=== PATIENT | female | born 1935 | race Caucasian/White ===

== ENCOUNTER 2021-05-10 00:30 | Day surgery (SDC) | payer MEDICARE, SELFPAY ==
[2021-04-29 14:17] VITALS: BMI 31.4
[2021-05-10 11:46] VITALS: BP 112/82; PULSE 87; RESP 17; TEMP 37; O2SAT 96; BMI 30.3
[2021-05-10] MEDS: LACTATED RINGERS 1,000 ML 150 ML IV CONT (11:52)
--- NOTE | 2021-05-10 12:00 | WPDGICN ---
Assessment and Plan Assessment and plan (1) Positive colorectal cancer screening using Cologuard test: Code(s): R19.5 - Other fecal abnormalities Status: Acute Assessment and Plan: Patient had positive Cologuard test performed in primary care office and presents today for colonoscopy because this test was positive. GI Consult Note Consult date/time: 05/10/21 12:00 HPI: Hiral Hernandez is a 85 year old female Presents for screening colonoscopy. Patient was found to have positive Cologuard test as an outpatient performed by primary care service. Patient reports that her weight appetite bowel movements are normal. She states she did have a previous colonoscopy 20 years ago that was unremarkable. Her family history is noncontributory. Patient reports her weight appetite bowel movements are normal. Past medical history is significant for lung cancer which patient's states was treated and it has no evidence of residual disease. She presents today for colonoscopy because of the Cologuard test. Review of Systems Review of Systems: All systems reviewed & are unremarkable except as noted in HPI and below PMFSH Surgical History Surgical History H/O vaginal hysterectomy Family History Family History Father Depression Hypertension Mother Hypertension Depression Cerebrovascular accident Sibling Breast cancer Hypertension Depression Other Diabetes mellitus Depression Hypertension Grandparent Hypertension Heart disease Lung cancer Malignant neoplasm of prostate Social History Social History Years smoked: 7 Smoking status: Former smoker Tobacco type: cigarettes Alcohol intake: current Drinks per week: 1 Alcohol use details: VARIES Substance use: never Substance use type: does not use Living arrangements: with family Gender identity (if verbalized by the patient): Female Spiritual care concerns: No Agree to blood products: Yes Meds Home Medications and Allergies Home Medications Medication Instructions Recorded Confirmed Type acetaminophen 500 mg tablet 500 mg PO Q6H PRN 02/12/21 05/10/21 History cholecalciferol (vitamin D3) 25 25 mcg PO DAILY 02/12/21 05/10/21 History mcg (1,000 unit) capsule hydrochlorothiazide 25 mg tablet 25 mg PO DAILY 02/12/21 05/10/21 History lisinopril 40 mg tablet 40 mg PO DAILY 02/12/21 05/10/21 History lovastatin 40 mg tablet 40 mg PO DAILY 02/12/21 05/10/21 History sertraline 50 mg tablet 50 mg PO DAILY 02/12/21 05/10/21 History tramadol 50 mg tablet 50 mg PO Q6H PRN 02/12/21 05/10/21 History Allergies Allergy/AdvReac Type Severity Reaction Status Date / Time No Known Allergies Allergy Verified 05/10/21 11:44 Vital Signs Vital Signs - 24 hr 05/10/21 11:46 Temperature 98.6 F Pulse Rate 87 Respiratory Rate 17 Blood Pressure 112/82 Pulse Oximetry 96 Exam Narrative: Physical exam reveals patient to be alert. Vital signs stable. HEENT exam is unremarkable. Patient is anicteric. Lungs are clear to auscultation and percussion. Heart is without murmur or extra sounds. Abdominal exam bowel sounds are present soft nontender with no hepatosplenomegaly. Digital external rectal exam is normal.
--- NOTE | 2021-05-10 12:05 | P.PNAN_ITS ---
Anes - Initial Pre Proc Eval Procedure: Operation Date: 05/10/21 13:00 Proposed Procedures p Colonoscopy - Milton Lowery MD Date/Time: 05/10/21 12:05 Surgeon: Milton Lowery MD Pre Op Diagnosis: positive cologuard Patient Data Age: 85 Gender: F Height: 1.52 m Weight: 70.5 kg Last Vital Signs Temp 37.0 C 05/10/21 11:46 Pulse 87 05/10/21 11:46 Resp 17 05/10/21 11:46 BP 112/82 05/10/21 11:46 Pulse Ox 96 05/10/21 11:46 Allergies Allergy/AdvReac Type Severity Reaction Status Date / Time No Known Allergies Allergy Verified 05/10/21 11:44 Home Medications Medication Instructions Recorded Confirmed Type acetaminophen 500 mg tablet 500 mg PO Q6H PRN 02/12/21 05/10/21 History cholecalciferol (vitamin D3) 25 25 mcg PO DAILY 02/12/21 05/10/21 History mcg (1,000 unit) capsule hydrochlorothiazide 25 mg tablet 25 mg PO DAILY 02/12/21 05/10/21 History lisinopril 40 mg tablet 40 mg PO DAILY 02/12/21 05/10/21 History lovastatin 40 mg tablet 40 mg PO DAILY 02/12/21 05/10/21 History sertraline 50 mg tablet 50 mg PO DAILY 02/12/21 05/10/21 History tramadol 50 mg tablet 50 mg PO Q6H PRN 02/12/21 05/10/21 History Patient hx anesthesia problems: none Family hx anesthesia problems: none Results Review: All pre-operative results and documents have been reviewed as part of the pre-operative evaluation. [facility] Past Medical History Medical History (Updated 05/10/21 @ 12:06 by Rigoberto Martel MD) Obesity Surgical History Surgical History H/O vaginal hysterectomy Family History Family History Father Depression Hypertension Mother Hypertension Depression Cerebrovascular accident Sibling Breast cancer Hypertension Depression Other Diabetes mellitus Depression Hypertension Grandparent Hypertension Heart disease Lung cancer Malignant neoplasm of prostate Social History Social History Years smoked: 7 Smoking status: Former smoker Tobacco type: cigarettes Alcohol intake: current Drinks per week: 1 Alcohol use details: VARIES Substance use: never Substance use type: does not use Living arrangements: with family Gender identity (if verbalized by the patient): Female Spiritual care concerns: No Agree to blood products: Yes Anes - Eval Final PreProcedure Day of Procedure 05/10/21 12:05 Patient weight: obese Heart: regular rate and rhythm Lungs: clear to auscultation Airway: Mallampati scale class II Neurological: alert and oriented Last oral intake: >/= 8 hours ASA classification: II Emergent: no Anesthetic plan: proceed Anesthesia type and monitoring: general GIVS and standard monitoring Results Review: All pre-operative results and documents have been reviewed as part of the pre-operative evaluation. Informed Consent: The patient's anesthetic plan and its attendant risks and benefits were discussed with the patient/family/POA. Questions were solicited and answers provided to the satisfaction of the patient/family/POA.
[2021-05-10] MEDS: SIMETHICONE ORAL SUSPENSION 20 MG/0.3 ML 30 ML BOTTLE 0.6 ML IRRIGATION (12:39)
[2021-05-10 12:45] VITALS: BP 88/47; PULSE 75; RESP 28; O2SAT 99
[2021-05-10 12:55] VITALS: BP 87/43; PULSE 72; RESP 27; O2SAT 98
[2021-05-10 13:05] VITALS: BP 106/62; PULSE 77; RESP 25; O2SAT 95
== END 2021-05-10 13:16 | disposition home or self-care (01) ==
PROVIDERS: PCP Family Medicine; Visit Provider Internal Medicine Gastroenterology
PROC: 0DJD8ZZ Inspection of Lower Intestinal Tract, Via Natural or Artificial Opening Endoscopic (ICD-10-PCS; CPT 45378; principal; 2021-05-10 13:00)
DX: R19.5 Other fecal abnormalities (principal); K64.8 Other hemorrhoids; K57.30 Diverticulosis of large intestine without perforation or abscess without bleeding; Z87.891 Personal history of nicotine dependence; E66.9 Obesity, unspecified; Z68.30 Body mass index [BMI] 30.0-30.9, adult
CPT/HCPCS: 45378; J2001; J2704; J7120

== ENCOUNTER 2021-10-29 01:05 | Day surgery (SDC) | payer MEDICARE, SELFPAY ==
[2021-09-21 13:31] VITALS: BMI 31.4
--- NOTE | 2021-10-18 09:31 | PC.NURSE ---
Attempt made to contact pt. regarding rescheduled date and time of EGD. Message left on answering machine to return call at [phone].
[2021-10-18 10:50] VITALS: BMI 66.6
--- NOTE | 2021-10-18 10:57 | PC.NURSE ---
Spoke with pt. regarding upcoming procedure on 2021. Pt. denies any symptoms of Covid at this time. Medical chart updated. No questions or concerns voiced per pt.
[2021-10-29 09:15] VITALS: BP 95/63; PULSE 61; RESP 16; TEMP 36.4; O2SAT 94
[2021-10-29] MEDS: LACTATED RINGERS 1,000 ML 150 ML IV CONT (09:26)
--- NOTE | 2021-10-29 09:28 | SUR.PREOP ---
DR PABLO NOTIFIED PT RUNNING UPPER 80s 02 SAT, PT NOT SHORT OF BREATH, DENIES ANY DIFFICULTY BREATHING, FINGERS NOT COLD. PT NOW RUNNING 94% ON ROOM AIR. PT CONTINUES TO DENY ANY DIFFICULTIES BREATHING OR SHORTNESS OF BREATH. NO NEW ORDERS. DR PABLO TO SEE PT.
--- NOTE | 2021-10-29 09:38 | PM.IMHP ---
H&P: HPI History of Present Illness Date/Time: 10/29/21 09:38 Chief Complaint: Iron deficiency anemia and dysphagia Narrative: this is an 85-year-old white female patient referred because of difficulty swallowing. Food will sometimes catch in mid substernal portion of the chest. She does report a prior history of acid reflux but only takes Tums [id number]. This appears to control her symptoms. She denies any significant weight loss. Patient apparently has a history of iron deficiency anemia and has for several years. She also has a history of lung cancer for which she we had a resection. She had a colonoscopy because of a positive Cologuard in April of 2021 that was unremarkable. Family history noncontributory. Patient presents today for EGD because of iron deficiency anemia by history and apparent dysphagia. Review of Systems Review of Systems: Review of systems noncontributory. [facility] Past Medical History Medical History (Updated 10/29/21 @ 09:40 by Milton Lowery MD) Obesity Surgical History Surgical History H/O vaginal hysterectomy Family History Family History Father Depression Hypertension Mother Hypertension Depression Cerebrovascular accident Sibling Breast cancer Hypertension Depression Other Diabetes mellitus Depression Hypertension Grandparent Hypertension Heart disease Lung cancer Malignant neoplasm of prostate Social History Social History Smoking packs per day: 0.25 Smoking cigarettes per day: 5.0 Years smoked: 20 Smoking pack-years: 5.00 Smoking status: Former smoker Tobacco type: cigarettes Alcohol intake: current Drinks per week: 1 Alcohol use details: once a month Substance use: never Substance use type: does not use Living arrangements: with family Gender identity (if verbalized by the patient): Female Spiritual care concerns: No Agree to blood products: Yes Meds Home Medications and Allergies Home Medications Medication Instructions Recorded Confirmed Type acetaminophen 500 mg tablet 500 mg PO Q6H PRN Acne 02/12/21 09/21/21 History (Tylenol Extra Strength) cholecalciferol (vitamin D3) 25 25 mcg PO DAILY 02/12/21 09/21/21 History mcg (1,000 unit) capsule hydrochlorothiazide 25 mg tablet 25 mg PO DAILY 02/12/21 09/21/21 History lisinopril 40 mg tablet 40 mg PO DAILY 02/12/21 09/21/21 History lovastatin 40 mg tablet 40 mg PO DAILY 02/12/21 09/21/21 History sertraline 50 mg tablet (Zoloft) 50 mg PO DAILY 02/12/21 09/21/21 History Calcium 600 1 tab-cap PO DAILY 09/21/21 09/21/21 History Allergies Allergy/AdvReac Type Severity Reaction Status Date / Time No Known Allergies Allergy Verified 10/29/21 09:14 Vital Signs Vital Signs - 24 hr 10/29/21 09:15 Temperature 97.5 F L Pulse Rate 61 Respiratory Rate 16 Blood Pressure 95/63 L Pulse Oximetry 94 Oxygen Delivery Room Air Exam Narrative: Physical exam reveals patient to be alert. Vital signs stable. HEENT exam is unremarkable. Patient is anicteric. Lungs are clear to auscultation and percussion. Heart is without murmur or extra sounds. Abdominal exam bowel sounds are present soft nontender with no hepatosplenomegaly. Assessment and Plan Assessment and plan (1) Dysphagia: Code(s): R13.10 - Dysphagia, unspecified Status: Acute Assessment and Plan: patient with food catching in the mid substernal ports the chest plan is for EGD to assess more thoroughly. She does have prior history resection of a lung cancer. (2) History of lung cancer: Code(s): Z85.118 - Personal history of other malignant neoplasm of bronchus and lung Status: Acute (3) JAVIER (iron deficiency anemia): Code(s): D50.9 - Iron deficiency anemia, unspecified St
--- NOTE | 2021-10-29 09:43 | WPDANESEPPF ---
Anes - Initial Pre Proc Eval Procedure: Operation Date: 10/29/21 09:30 Proposed Procedures p Esophagogastroduodenoscopy - Milton Lowery MD Date/Time: 10/29/21 09:43 Surgeon: Milton Lowery MD Pre Op Diagnosis: Dysphagia, JAVIER Patient Data Age: 85 Gender: F Height: 1.55 m Weight: 72.2 kg Last Vital Signs Temp 97.5 F L 10/29/21 09:15 Pulse 61 10/29/21 09:15 Resp 16 10/29/21 09:15 BP 95/63 L 10/29/21 09:15 Pulse Ox 94 10/29/21 09:15 O2 Del Method Room Air 10/29/21 09:15 Allergies Allergy/AdvReac Type Severity Reaction Status Date / Time No Known Allergies Allergy Verified 10/29/21 09:14 Home Medications Medication Instructions Recorded Confirmed Type acetaminophen 500 mg tablet 500 mg PO Q6H PRN Acne 02/12/21 09/21/21 History (Tylenol Extra Strength) cholecalciferol (vitamin D3) 25 25 mcg PO DAILY 02/12/21 09/21/21 History mcg (1,000 unit) capsule hydrochlorothiazide 25 mg tablet 25 mg PO DAILY 02/12/21 09/21/21 History lisinopril 40 mg tablet 40 mg PO DAILY 02/12/21 09/21/21 History lovastatin 40 mg tablet 40 mg PO DAILY 02/12/21 09/21/21 History sertraline 50 mg tablet (Zoloft) 50 mg PO DAILY 02/12/21 09/21/21 History Calcium 600 1 tab-cap PO DAILY 09/21/21 09/21/21 History Patient hx anesthesia problems: none Family hx anesthesia problems: none Results Review: All pre-operative results and documents have been reviewed as part of the pre-operative evaluation. [facility] Past Medical History Medical History (Updated 10/29/21 @ 09:40 by Milton Lowery MD) Obesity Surgical History Surgical History H/O vaginal hysterectomy Family History Family History Father Depression Hypertension Mother Hypertension Depression Cerebrovascular accident Sibling Breast cancer Hypertension Depression Other Diabetes mellitus Depression Hypertension Grandparent Hypertension Heart disease Lung cancer Malignant neoplasm of prostate Social History Social History Smoking packs per day: 0.25 Smoking cigarettes per day: 5.0 Years smoked: 20 Smoking pack-years: 5.00 Smoking status: Former smoker Tobacco type: cigarettes Alcohol intake: current Drinks per week: 1 Alcohol use details: once a month Substance use: never Substance use type: does not use Living arrangements: with family Gender identity (if verbalized by the patient): Female Spiritual care concerns: No Agree to blood products: Yes Anes - Eval Final PreProcedure Day of Procedure 10/29/21 09:43 Patient weight: obese Heart: regular rate and rhythm Lungs: clear to auscultation Airway: Mallampati scale class II Neurological: alert and oriented Last oral intake: >/= 8 hours ASA classification: III Emergent: no Anesthetic plan: proceed Anesthesia type and monitoring: general GIVS and standard monitoring Results Review: All pre-operative results and documents have been reviewed as part of the pre-operative evaluation. Informed Consent: The patient's anesthetic plan and its attendant risks and benefits were discussed with the patient/family/POA. Questions were solicited and answers provided to the satisfaction of the patient/family/POA.
--- NOTE | 2021-10-29 09:51 | SUR.OPER ---
52 FR. ZEPEDA PASSED.
[2021-10-29 10:05] VITALS: BP 93/59; PULSE 74; RESP 19; O2SAT 99
--- NOTE | 2021-10-29 10:06 | SUR.OPER ---
52 FR., 38 FR., 42 FR., 46 FR., ZEPEDA DILATORS WERE ATTEMPTED ON PATIENT FOR DILATION BUT WAS UNSUCCESSFUL. CRE BALLOON INFLATED TO 12MM FOR DILATION ON DITAL ESOPHAGEAL WEB.
[2021-10-29 10:15] VITALS: BP 96/55; PULSE 78; RESP 19; O2SAT 93
[2021-10-29 10:25] VITALS: BP 117/69; PULSE 73; RESP 17; O2SAT 96
== END 2021-10-29 10:48 | disposition home or self-care (01) ==
PROVIDERS: PCP Family Medicine; Visit Provider Internal Medicine Gastroenterology
PROC: 0DJ08ZZ Inspection of Upper Intestinal Tract, Via Natural or Artificial Opening Endoscopic (ICD-10-PCS; CPT 43235; principal; 2021-10-29 09:30)
DX: D50.9 Iron deficiency anemia, unspecified (principal); Q39.4 Esophageal web; R13.10 Dysphagia, unspecified; Z87.891 Personal history of nicotine dependence; E66.9 Obesity, unspecified; Z68.30 Body mass index [BMI] 30.0-30.9, adult
CPT/HCPCS: 43249; C1726; J2001; J2704; J7120

== ENCOUNTER 2022-03-04 07:51 | Outpatient (CLI) | payer MEDICARE, SELFPAY ==
--- NOTE | ~2022-03-04 | XR_ITS ---
EXAMINATION: XR UGIAC w barium swallow DATE: 03/04/2022 08:47 * INDICATION: Iron deficiency anemia, unspecified, dysphagia TECHNIQUE: The patient drank thick barium, gas-producing crystals, and thin barium. Conventional supi ne abdomen radiographs and fluoroscopy of the esophagus, stomach, and proximal small bowel were perfo rmed. Fluoroscopy exposure time was 2.8 minutes. The DAP for this procedure was 21.2 Gycm2. COMPARISON: None. FINDINGS: There is no mass or stricture of the esophagus. Mild presbyesophagus is noted. There is a l arge sliding hiatal hernia. There was a small amount of spontaneous gastroesophageal reflux. The prox imal small bowel shows normal folding patterns. IMPRESSION: 1. Large sliding hiatal hernia. Reviewed, dictated and finalized at location [facility]. [facility]
== END 2022-03-04 07:52 | disposition home or self-care (01) ==
PROVIDERS: PCP Family Medicine; Visit Provider Internal Medicine Gastroenterology
DX: D50.9 Iron deficiency anemia, unspecified (principal); K44.9 Diaphragmatic hernia without obstruction or gangrene
CPT/HCPCS: 74246

== ENCOUNTER 2022-03-18 06:19 | Outpatient (CLI) | payer MEDICARE, SELFPAY ==
--- NOTE | 2022-03-17 09:27 | PC.NURSE ---
spoke with pt this am and reviewed instructions for tomorrow, 03/18/2022 [facility] Capsule. Pt verbalizes understanding of instructions and will arrive but 0615.
--- NOTE | 2022-03-18 06:55 | SUR.OPER ---
Patient brought to GI Lab. Instructions for patient undergoing Capsule Endoscopy reviewed with patient. Consent form signed. Sensor array applied to patient's abdomen and connected to recorded. Patient swallowed capsule with 16 ozs of water infused with Simethicone. Patient instructed they may have clear liquids at 0900 this AM and eat or drink at 1100 this AM. Patient instructed to return to GI Lab at 1500 this afternoon for removal of recording device and to call [phone] or to return to the hospital if any nausea and vomiting or abdominal pain is experienced.
--- NOTE | 2022-03-18 15:12 | SUR.PHASEII ---
Patient returned to the GI Lab at 1510 for recorder box removal. Patient voiced no complaints. States they have understanding of instructions. Patient left ambulatory.
== END 2022-03-18 06:20 | disposition home or self-care (01) ==
PROVIDERS: PCP Family Medicine; Visit Provider Internal Medicine Gastroenterology
PROC: 0DJ07ZZ Inspection of Upper Intestinal Tract, Via Natural or Artificial Opening (ICD-10-PCS; CPT 91110; principal; 2022-03-18 07:00)
DX: D50.9 Iron deficiency anemia, unspecified (principal); R13.10 Dysphagia, unspecified; Z01.818 Encounter for other preprocedural examination
CPT/HCPCS: 91110